=== PATIENT | male | born 1995 | race Caucasian/White ===

== ENCOUNTER → 2019-03-20 | Outpatient (CLI) | payer SELFPAY ==
[~2019-03-20] MED LIST: HYDACE5 PO; MOMENI; RXHYDACE PO; Zofran Odt4 MG SL
[2019-03-24 00:06] LABS: CHLAMYDIA BY NAA Negative (Negative); GONOCOCCUS BY NAA Negative (Negative); TRICH VAG BY NAA Negative (Negative)
== END ==
LOC: LAB SHORT 15:31 → LAB EV 15:31
PROVIDERS: Nurse Practitioner
DX: A60.9 Anogenital herpesviral infection, unspecified (principal)
CPT/HCPCS: 87491; 87529; 87591; 87661